=== PATIENT | male | born 1970 | race African-American/Black ===

== ENCOUNTER → 2020-02-01 13:38 | Outpatient (BNVA) | payer OTHER, SELFPAY | PROVIDERS: Visit Provider Physician Assistant Medical | DX: S81.841D Puncture wound with foreign body, right lower leg, subsequent encounter (principal); X58.XXXD Exposure to other specified factors, subsequent encounter | CPT/HCPCS: 76882; 99203 ==

== ENCOUNTER → 2020-02-05 11:00 | Outpatient (BNVA) | payer OTHER, SELFPAY | PROVIDERS: Visit Provider Surgery | DX: M79.5 Residual foreign body in soft tissue (principal) | CPT/HCPCS: 99203 ==

== ENCOUNTER 2020-02-15 09:00 | Outpatient (REF) | payer OTHER, SELFPAY ==
--- NOTE | 2020-02-15 09:56 | PC.NURSE ---
Vital signs pre-op 98.8-128/86-82-16-98% RA Vital signs post-op 128/83-77-16-98%RA Discharge instructions reviewed with and provided to patient by Trevor Lay RN
--- NOTE | 2020-02-15 10:04 | P.OP_ITS ---
Operative Note Operative Note Narrative: Preoperative diagnosis: Foreign body right ankle Postoperative diagnosis: Same Procedure: Excision of foreign body right ankle Anesthesia: Local 1% lidocaine with epinephrine 4 cc Estimated blood loss: Less than 1 cc Immediate complications: None Indications: This is a 49-year-old gentleman who was helping to support a heavy truss when it slipped and slid down the back of his right leg Leaving splinters of wood in the subcutaneous tissue. He was able to remove some of them, but 1 large piece remains and is palpable in the right Achilles area Procedure in detail: with patient in the prone position after performing time- out procedure, the area of the foreign body and surrounding skin was prepped with Betadine solution and draped sterilely. Skin and subcutaneous tissues overlying the area were infiltrated with local anesthetic. Incision was made o kristin the long access of the palpable foreign body and was carried into the subcutaneous tissues. Small crossing vein was identified and was ligated with 4-0 Polysorb ties and divided. Immediately below the vein, the foreign body was visible. It appeared consistent with would and measured approximately 2 mm x 28 mm. it was sent for gross examination. The wound was cleansed with saline solution and closed with interrupted subcutaneous and subcuticular sutures of 4 0 Polysorb. Mastisol, Steri-Strips and a dry sterile dressing were applied. He tolerated the procedure well. He will keep the area dry and covered for 24 hours. He will then remove the outer dressing and will leave the Steri-Strips in place. He will use acetaminophen or ibuprofen as tolerated for pain and will follow up in the office as scheduled next week.
[2020-02-15 10:27] VITALS: BMI 33.2
[2020-02-15 10:29] VITALS: BMI 33.2
[2020-02-15 10:32] VITALS: BP 128/86; PULSE 82; RESP 16; TEMP 37.1; O2SAT 98
[2020-02-15 10:33] VITALS: BP 128/83; PULSE 77; RESP 16
== END 2020-02-15 23:59 | disposition home or self-care (01) ==
LOC: HO.MS 09:00
PROVIDERS: PCP Surgery; Visit Provider Surgery
DX: M79.5 Residual foreign body in soft tissue (principal)
CPT/HCPCS: 28190; 88300

== ENCOUNTER → 2020-02-27 10:55 | Outpatient (BNVA) | payer OTHER, SELFPAY | PROVIDERS: PCP Physician Assistant Medical; Visit Provider Surgery | DX: Z48.89 Encounter for other specified surgical aftercare (principal); R20.0 Anesthesia of skin | CPT/HCPCS: 99212; 99213 ==

== ENCOUNTER → 2020-02-29 14:11 | Outpatient (BNVA) | payer OTHER, SELFPAY | PROVIDERS: PCP Physician Assistant Medical; Visit Provider Physician Assistant Medical | DX: S43.084D Other dislocation of right shoulder joint, subsequent encounter (principal); S80.851D Superficial foreign body, right lower leg, subsequent encounter; X58.XXXD Exposure to other specified factors, subsequent encounter | CPT/HCPCS: 99213 ==

== ENCOUNTER → 2020-03-19 10:37 | Outpatient (BNVA) | payer OTHER, SELFPAY | PROVIDERS: PCP Physician Assistant Medical; Referring Provider Physician Assistant Medical; Visit Provider Surgery | DX: Z48.89 Encounter for other specified surgical aftercare (principal) | CPT/HCPCS: 99212 ==

== ENCOUNTER → 2020-03-22 16:34 | Outpatient (BNVA) | payer OTHER, SELFPAY | PROVIDERS: PCP Physician Assistant Medical; Visit Provider Physician Assistant Medical | DX: S81.841D Puncture wound with foreign body, right lower leg, subsequent encounter (principal); S46.002D Unspecified injury of muscle(s) and tendon(s) of the rotator cuff of left shoulder, subsequent encounter; X58.XXXD Exposure to other specified factors, subsequent encounter; R20.2 Paresthesia of skin | CPT/HCPCS: 99213 ==